=== PATIENT | female | born 1940 | race Caucasian/White ===

== ENCOUNTER 2017-01-17 11:42 | Emergency (ER) | payer MEDICARE, OTHER ==
--- NOTE | 2017-01-17 12:30 | EDM.PDOC ---
ED HPI GENERAL MEDICAL PROBLEM - General Chief Complaint: General Stated Complaint: Cough Time Seen by Provider: 01/17/17 12:20 Source of Information: Reports: Patient, RN notes reviewed History Limitations: Reports: No limitations - History of Present Illness INITIAL COMMENTS - FREE TEXT/NARRATIVE: 76 year old female presents to the ED with chief complaint of 1 week history of cough productive of thick white sputum. The cough seems to be worsening. She reports some "chest heaviness" with the cough. She says the heaviness does not radiate. She denies chest pain, dyspnea, shortness of breath with exertion, lower extremity edema, fever, chills, nausea, vomiting, abdominal pain. She reports generalized body aches at times and a mild sore throat. Her right ear also is "uncomfortable." She denies history of heart or lung disease however she admits to smoking cigarettes. She feels she needs an antibiotic. She takes a baby aspirin daily and a hydrocodone at bedtime for spinal stenosis. Otherwise she denies medical history and takes no additional medications. Her PCP is Dr. Melo. Generalized Pain Score (Numeric/FACES): 9 - Related Data Allergies Allergy/AdvReac Type Severity Reaction Status Date / Time No Known Allergies Allergy Verified 01/17/17 11:57 Home Meds: Home Meds Hydrocodone/Acetaminophen [Hydrocodon-Acetaminophen 5-325] 1 tab PO BEDTIME [History] Past Medical History - Past Surgical History Female Surgical History: Reports: Hysterectomy Musculoskeletal Surgical History: Reports: Carpal tunnel Social & Family History - Tobacco Use Smoking Status *Q: Current Every Day Smoker Years of Tobacco use: 40 Packs/Tins Daily: 1 - Caffeine Use Caffeine Use: Reports: None - Recreational Drug Use Recreational Drug Use: No ED ROS GENERAL - Review of Systems Review Of Systems: See Below Constitutional: Reports: no symptoms. Denies: fever, chills, diaphoresis HEENT: Reports: Ear pain (right), Throat pain. Denies: Rhinitis, Sinus problem , Throat swelling Respiratory: Reports: Cough, Sputum. Denies: Shortness of Breath, Wheezing, Pleuritic Chest Pain Cardiovascular: Reports: No symptoms. Denies: Chest pain, Dyspnea on exertion, Edema, Lightheadedness GI/Abdominal: Reports: No symptoms. Denies: Abdominal pain Neurological: Reports: No Symptoms. Denies: Headache ED EXAM, GENERAL - Physical Exam Exam: See Below Exam Limited By: No limitations General Appearance: alert, WD/WN, no apparent distress Ears: other (Unable to visualize TMs due to cerumen in canal) Throat/Mouth: Normal inspection, Normal oropharynx Neck: normal inspection, supple, non-tender, full range of motion. No: lymphadenopathy (L), lymphadenopathy (R) Respiratory/Chest: no respiratory distress, lungs clear, normal breath sounds, no accessory muscle use, chest non-tender. No: rales, rhonchi, wheezing Cardiovascular: normal peripheral pulses, regular rate, rhythm, no edema, no JVD , no murmur GI/Abdominal: normal bowel sounds, soft, non tender Extremities: normal inspection, normal range of motion, non-tender, no pedal edema Neurological: alert, oriented, normal cognition EKG INTERPRETATION EKG Date: 01/17/17 Time: 12:44 Rhythm: NSR Rate (beats/min): 90 [place]: RAD-right axis deviation P-wave: present QRS: normal ST-T: depressed (inferior leads, minimal) QT: normal Course - Vital Signs Last Recorded V/S: Last Vital Signs Temp 98.6 F 01/17/17 11:55 Pulse 93 01/17/17 11:55 Resp 16 01/17/17 11:55 BP 147/79 H 01/17/17 11:55 Pulse Ox 94 L 01/17/17 11:55 - Orders/Labs/Meds Orders: Active Orders 24 hr Category Date Time Status EKG 12 Lead [EKG Documentation Completion] [RC] STAT Care 01/17/17 12:30 Ordered RT Post Treatment Assessment [RC] Click To Edit Care 01/17/17 13:06 Ordered RT Pre-Treatment Assessment [RC] Click To Edit Care 01/17/17 13:06 Ordered CXR [Chest 2V] [CR] Stat Exams 01/17/17 12:30 Ordered Albuterol [Proventil HFA] Med 01/17/17 13:06 Ordered 1 gm INH Q4H PRN Medication Orders Albuterol (Proventil Hfa) 1 gm INH Q4H PRN PRN Reason: Cough Last Admin: 01/17/17 13:15 Dose: 2 puff Meds: Medications Generic Name Dose Route Start Last Admin Trade Name Freq PRN Reason Stop Dose Admin Albuterol 1 gm 01/17/17 13:06 01/17/17 13:15 Proventil Hfa INH 2 puff Q4H PRN Administration Cough - Re-Assessments/Exams Free Text/Narrative Re-Assessment/Exam: 2 view chest x-ray reveals hyperinflation and flattened diaphragms consistent with chronic emphysematous changes related to smoking. No acute pulmonary infiltrates or effusions appreciated. Mediastinum appears normal. EKG read by Dr. Da Silva. EKG reveals SR 90 bpm with right atrial enlargement and right axis deviation. There is minimal ST depression in the inferior leads and inverted T waves in AVL. I offered blood work but the patient declined. We discussed her EKG and chest x- ray findings. We also discussed her risk factors for heart disease. The patient continues to decline further workup at this time. Will start her on Levaquin 750mg PO x5 days (sent to [facility]). Also will provide her with an Albuterol inhaler and teaching per respiratory therapy. The patient was thoroughly educated on return precautions and follow-up instructions. Departure - Departure Time of Disposition: 13:05 Disposition: Home, Self-Care 01 Condition: good Clinical Impression: Bronchitis Instructions: Acute Bronchitis, [id number] Referrals: Vivek Macdonald MD [Primary Care Provider] - Forms: ED Department Discharge Additional Instructions: Levaquin 750mg one tab daily for 5 days Albuterol inhaler 2 puffs every 4 hours as needed for cough or shortness of breath Return to ER if you develop chest pain, shortness of breath, fever, or additional concerns Follow-up with Dr. Melo this week - My Orders Last 24 Hours: My Active Orders 01/17/17 12:30 EKG 12 Lead [EKG Documentation Completion] [RC] STAT CXR [Chest 2V] [CR] Stat 01/17/17 13:06 RT Post Treatment Assessment [RC] Click To Edit RT Pre-Treatment Assessment [RC] Click To Edit Albuterol [Proventil HFA] 1 gm INH Q4H PRN - Assessment/Plan Last 24 Hours: My Active Orders 01/17/17 12:30 EKG 12 Lead [EKG Documentation Completion] [RC] STAT CXR [Chest 2V] [CR] Stat 01/17/17 13:06 RT Post Treatment Assessment [RC] Click To Edit RT Pre-Treatment Assessment [RC] Click To Edit Albuterol [Proventil HFA] 1 gm INH Q4H PRN
[2017-01-17] MEDS ORDERED: Albuterol 6.7 GM Inhaler INH PRN (13:06)
[2017-01-17 13:49] VITALS: BP 148/85
--- NOTE | 2017-01-18 07:16 | CR ---
Chest: Two views of the chest were obtained. Comparison: No previous chest x-ray, previous chest CT of 01/10/16. Previous chest CT showed a right lower lung mass which is not well identified currently but felt to be present within the right lung base. Lungs show mild scarring on the left side. Diaphragms are flattened on the lateral view compatible with emphysematous change. Bony structures are grossly intact. Impression: 1. Right lower lung mass partially seen which is a better identified on chest CT study of 01/10/16. 2. Emphysematous change. 3. Mild areas of scarring with nothing acute otherwise being seen. Diagnostic code #9
== END 2017-01-17 13:25 | disposition home or self-care (01) ==
LOC: JD.ED 11:42
DX: J40 Bronchitis, not specified as acute or chronic (principal); F17.200 Nicotine dependence, unspecified, uncomplicated
CPT/HCPCS: 71020; 93005; 94664; 99285; A9270; 99283